=== PATIENT | male | born 1955 | race Caucasian/White ===

== ENCOUNTER → 2022-06-10 | Outpatient (CLI) | payer SELFPAY, OTHER ==
--- NOTE | 2022-06-10 17:13 | STRESSREP_ITS ---
Stress Test Report Date: 06/10/2022 Procedure: Exercise tolerance test/imaging study Indications: Chest pain Consent: Per the patient Procedure: The patient exercised on a Gasper protocol for 10 minutes and 1 second achieving a peak heart rate of 122 bpm (80% predicted maximal heart rate) with a peak blood pressure 218/70 mmHg and a peak MET capacity of 13.4 METs. The baseline ECG demonstrated normal sinus rhythm. The peak exercise ECG demonstrated sinus tachycardia with no significant ST-T changes. EKG during recovery revealed no significant ST-T changes [There were no cardiac dysrhythmias pretest, during exercise, or recovery]. The functional capacity was considered excellent for age. Patient had mild chest pain at peak exercise that resolved in the recovery period. The examination was discontinued secondary to dyspnea. Impression: 1. Technically adequate (percent predicted maximal heart rate greater than 85%) exercise tolerance test 2. Stress test is negative for exercise-induced EKG changes of ischemia 3. The test test is positive for exercise-induced chest pain 4. Functional capacity is excellent for age 5. Nuclear images pending Myocardial perfusion imaging study: Technique: The patient was injected with 14.2 mCi of technetium 99m Cardiolite and subsequently rest SPECT Cardiolite nuclear imaging was obtained in the horizontal long, vertical long, and short axis views. The patient exercised on a Gasper protocol. Please see above for details. The patient was injected with 43.8 mCi of technetium 99m Cardiolite and subsequently stress SPECT Cardiolite nuclear imaging was obtained in the horizontal long, vertical long, and short axis views. A gated Cardiolite study at peak stress was obtained. Interpretation: Rest and stress SPECT Cardiolite nuclear imaging status post realignment, normalization, and attenuation correction, demonstrates normal myocardial radioisotope uptake at rest. Stress images reveal moderate decrease in the radioisotope uptake in the apex suggestive of apical ischemia. The gated Cardiolite study demonstrates mild apical hypokinesis. The reported LVEF is 64%. Impression: 1. There is evidence of moderate degree of ischemia involving the apex. 2. The gated Cardiolite study reports an LVEF of 64%. This note was generated with [employer] software. It may contain incorrect words, spelling, and punctuation that were not noted in checking the note before signing.
== END | disposition home or self-care (01) ==
PROVIDERS: PCP Family Medicine; Referring Provider Family Medicine; Visit Provider Family Medicine
DX: I10 Essential (primary) hypertension (principal); E11.9 Type 2 diabetes mellitus without complications; R07.9 Chest pain, unspecified
CPT/HCPCS: 78452; 93017; A9500; A4216

== ENCOUNTER → 2022-07-13 | Outpatient (CLI) | payer SELFPAY ==
--- NOTE | 2022-07-13 09:42 | CT_ITS ---
STUDY: CT ABDOMEN AND PELVIS WITH CONTRAST REASON FOR EXAM: Male, 67 years old. One-month history of right upper quadrant pain. RADIATION DOSAGE (If Supplied By Facility): CTDIvol = ( 17.54 ) mGy, DLP = ( 1073.54 ) mGycm TECHNIQUE: Transaxial images were obtained from the dome of the diaphragm to the symphysis pubis with oral contrast. Oral and amp; IV Readi-CAT and amp; 100mL Isovue-370 was administered. Sagittal and coronal images were reconstructed. Individualized dose optimization techniques were used for this CT. COMPARISON: None. FINDINGS: Minimal increased markings in the anterior aspect of the right lower lobe suggestive of linear atelectasis or scarring. Coronary artery calcification. There is decreased attenuation of the liver consistent with steatosis. Normal gallbladder and extrahepatic biliary system. Normal spleen. Normal pancreas. Normal bilateral adrenal glands. 5 mm nonobstructive calculus in the lower pole calyx of the right kidney as well as a 3.5 mm calculus in the midpole calyx of the right kidney. There is a 3 mm calculus in the mid pole of the left kidney. There is also evidence of a 5.6 mm nonobstructive, gas in the lower pole acute except the left kidney. Normal visualized stomach. Normal small intestine. Normal colon. The appendix is visualized and appears normal. There is scattered atherosclerotic calcification of the abdominal aorta, without a demonstrated aneurysm. Normal inferior vena cava. Normal retroperitoneum. There is a 7.9 mm calculus at the base of the bladder on the right side. There is a 4 cm x 3.1 cm polypoid mass at the base of the bladder. This extends more prominently onto the right side. Correlation with endoscopy is recommended. There is enlargement of the prostate gland. It measures 6.1 cm x 6 cm. It is of heterogeneous density. Prostatic calcifications are seen posteriorly. This causes indentation at the bladder base. Normal abdominal wall. There are mild degenerative changes of the visualized lumbar spine. CT/Abdomen/Pelvis WITH Contrast IMPRESSION: Fatty infiltration of the liver. Nonobstructive bilateral intrarenal calculi. Heterogeneous enlargement of the prostate with indentation of the bladder base. 4 cm x 3.1 cm polypoid mass at the base of the bladder. Cystoscopy is recommended. 7.9 mm calculus at the base of the bladder on the right side. Electronically Signed: Eliud Mejía MD at 15:36 EDT ,
[2022-07-13 15:10] LABS: EGFR FINGERSTICK > 60.0000 mL/min (>60)
== END | disposition home or self-care (01) ==
PROVIDERS: PCP Family Medicine; Visit Provider Family Medicine
DX: R10.11 Right upper quadrant pain (principal); D64.9 Anemia, unspecified
CPT/HCPCS: 74177; Q9967

== ENCOUNTER → 2022-09-22 | Outpatient (CLI) | payer SELFPAY ==
--- NOTE | 2022-09-22 08:33 | US_ITS ---
STUDY: ABDOMINAL ULTRASOUND - RIGHT UPPER QUADRANT REASON FOR VISIT: Male, 67 years old . Right upper quadrant pain with nausea after eating greasy foods. TECHNIQUE: Ultrasound evaluation of the right upper quadrant was performed with real-time and static walker-scale imaging. TECHNICAL QUALITY: Adequate. COMPARISON: None. FINDINGS: Liver: The liver is slightly enlarged and measures 17.7 cm. There is increased echogenicity consistent with fatty infiltration. The bile ducts are within normal limits. There is hepatic color flow. The direction of portal flow is hepatopetal. There is no demonstrated mass lesion. Gallbladder: Normal distended gallbladder. The gallbladder wall measures 1 mm. There is a negative sonographic Hunter''s sign. There is no pericholecystic fluid. There are no gallstones. There is a 4 mm x 3 mm x 3 mm gallbladder polyp. Common Bile Duct (C.B.D.): The common bile duct measures 4 mm. Pancreas: Normal size of the head, body and tail of the pancreas. There is increased echogenicity of the pancreas. There is no demonstrated pancreatic mass or cyst. Right Kidney: Normal size of the right kidney. The right kidney measures 12.8 cm x 6.7 cm x 5.6 cm. Normal renal cortex. The right cortex measures 1.5 cm. There is no demonstrated renal mass or cyst. There is no right hydronephrosis. Small left intrarenal calculi. US/Abdomen Limited IMPRESSION: Mild hepatomegaly and fatty infiltration of the liver. Nonobstructive right intrarenal calculus. Electronically Signed: Eliud Mejía MD at 13:39 EST ,
== END | disposition home or self-care (01) ==
PROVIDERS: PCP Family Medicine; Referring Provider Family Medicine; Visit Provider Family Medicine
DX: R10.11 Right upper quadrant pain (principal)
CPT/HCPCS: 76705